=== PATIENT | male | born 1960 | race Caucasian/White ===

== ENCOUNTER 2021-07-08 13:49 | Outpatient (CLI) | payer BC | END 2021-07-08 13:50 | disposition home or self-care (01) | LOC: BICMAMMO 13:49 | PROVIDERS: ATTEND Nurse Practitioner Family | DX: N63.42 Unspecified lump in left breast, subareolar (principal) | CPT/HCPCS: 77066; G0279 ==

== ENCOUNTER 2024-04-22 15:03 | Outpatient (CLI) | payer BC | END 2024-04-22 15:04 | disposition home or self-care (01) | LOC: SCSMRI 15:03 | PROVIDERS: ATTEND Nurse Practitioner Family | DX: S49.91XD Unspecified injury of right shoulder and upper arm, subsequent encounter (principal); S43.431D Superior glenoid labrum lesion of right shoulder, subsequent encounter; M75.51 Bursitis of right shoulder ==

== ENCOUNTER 2024-06-11 09:51 | Outpatient (CLI) | payer BC ==
[2024-06-11 10:47] LABS: #Basophils 0.05 10x3/uL (0.0-0.2); %Basophils 0.7 % (0.0-1.0); %Eosinophils 1.2 % (0.0-10.0); %Lymphocytes 26.5 % (21.0-51.0); %Monocytes 7.1 % (0.0-10.0); %Neutrophils 64.1 % (42.0-75.0); Hematocrit 44.9 % (42.0-52.0); Hemoglobin 15.3 g/dL (14.0-18.0); Mean Corpuscular HGB CONC 34.1 g/dL (32.0-36.0); Mean Corpuscular Hemoglobin 31.3 pg (27.0-31.0); Mean Corpuscular Volume 91.8 fL (78.0-98.0); Mean Platelet Volume 11.2 fL (7.4-10.4); Platelet Count 230 10x3/uL (130-400); RBC Distribution Width 13.9 % (11.5-14.5); Red Blood Cell (RBC) Count 4.89 mill/uL (4.70-6.10)
[2024-06-11 11:12] LABS: Anion Gap 13 mmol/L (10-20); BUN (Urea Nitrogen) 10 mg/dL (8.4-25.7); Calc. Creatinine Clearance 0 mL/min (70-130); Calcium 9.1 mg/dL (7.8-10.44); Carbon Dioxide 26 mmol/L (23-31); Chloride 102 mmol/L (98-107); Estimated GFR 71; Glucose 90 mg/dL (80-115); Potassium 4.5 mmol/L (3.5-5.1); Sodium 136 mmol/L (136-145)
== END 2024-06-11 09:52 | disposition home or self-care (01) ==
LOC: LABBT 09:51
PROVIDERS: ATTEND Orthopaedic Surgery
DX: Z01.818 Encounter for other preprocedural examination (principal); M75.111 Incomplete rotator cuff tear or rupture of right shoulder, not specified as traumatic
CPT/HCPCS: 80048; 85025; 93005; 93010

== ENCOUNTER 2024-06-14 07:30 | Day surgery (SDC) | payer BC ==
[2024-06-11 10:05] VITALS: BMI 28.0
[2024-06-14] MEDS ORDERED: fentaNYL 50 mcg/mL 1 mL Vial ONE ×2 (08:07→09:35)
[2024-06-14] MEDS ORDERED: Midazolam HCl 2 mg/2 ml Vial ONE (08:08)
[2024-06-14] MEDS ORDERED: Ropivacaine 0.5% HCl/PF (150 MG/30 ML VIAL) ONE (08:08)
[2024-06-14] MEDS ORDERED: Ropivacaine 0.2% HCl/PF 20 ML ONE (08:08)
[2024-06-14] MEDS ORDERED: Bupivacaine 0.25% HCL 30 ML VIAL ONE (09:14)
[2024-06-14] MEDS ORDERED: EPINEPHrine 1 MG/ML VIAL ONE (09:14)
[2024-06-14] MEDS ORDERED: CEFAZOLIN 2 GM VIAL ONE (09:24)
[2024-06-14] MEDS ORDERED: PROPOFOL 20 ML ONE (09:35)
[2024-06-14] MEDS ORDERED: Rocuronium Bromide 10 MG/ML (10ML VIAL) ONE (09:36)
[2024-06-14] MEDS ORDERED: Lidocaine 1% PF 5 ML VIAL ONE (09:36)
[2024-06-14] MEDS ORDERED: SUCCINYLCHOLINE/SOD CL,ISO/PF 200 MG/10 ML SYRINGE FS ONE (09:49)
[2024-06-14] MEDS ORDERED: Dexamethasone 20 MG/5 ML VIAL ONE (09:59)
[2024-06-14] MEDS ORDERED: Ondansetron PF 4 MG/2 ML Vial ONE (09:59)
[2024-06-14] MEDS ORDERED: Zolpidem Tartrate 5 MG TAB PO PRN (10:00)
[2024-06-14] MEDS ORDERED: Ropivacaine 0.2% 550 ML 550 ML NERVE BLCK SCH (10:00)
[2024-06-14] MEDS ORDERED: Promethazine HCl 25 MG/ML VIAL IM PRN ×2 (10:00→11:04)
[2024-06-14] MEDS ORDERED: Ondansetron PF 4 MG/2 ML Vial IVP PRN (10:00)
[2024-06-14] MEDS ORDERED: PHENYLEPHRINE-NS 100 MCG/ML 10 ML SYRINGE ONE (10:26)
[2024-06-14] MEDS ORDERED: Ondansetron HCl/PF 4 MG/2 ML Vial IVP PRN (11:04)
== END 2024-06-14 12:45 | disposition home or self-care (01) ==
LOC: SDC 07:30
PROVIDERS: ATTEND Orthopaedic Surgery
PROC: 0RBJ4ZZ Excision of Right Shoulder Joint, Percutaneous Endoscopic Approach (ICD-10-PCS; principal; 2024-06-14)
PROC: 3E0T3BZ Introduction of Anesthetic Agent into Peripheral Nerves and Plexi, Percutaneous Approach (ICD-10-PCS; principal; 2024-06-14)
DX: M75.111 Incomplete rotator cuff tear or rupture of right shoulder, not specified as traumatic (principal); M75.51 Bursitis of right shoulder; E78.00 Pure hypercholesterolemia, unspecified; J45.909 Unspecified asthma, uncomplicated; K21.9 Gastro-esophageal reflux disease without esophagitis; Z87.891 Personal history of nicotine dependence; Z88.8 Allergy status to other drugs, medicaments and biological substances; Z79.2 Long term (current) use of antibiotics; Z79.51 Long term (current) use of inhaled steroids; Z79.899 Other long term (current) drug therapy
CPT/HCPCS: A4306; J0171; J0665; J1100; J2250; J2405; J2704; J2795; J3010

== ENCOUNTER 2024-12-24 13:45 | Outpatient (CLI) | payer BC | END 2024-12-24 13:46 | disposition home or self-care (01) | LOC: SCSMRI 13:45 | PROVIDERS: ATTEND Orthopaedic Surgery | DX: M47.812 Spondylosis without myelopathy or radiculopathy, cervical region (principal); M54.2 Cervicalgia; M50.30 Other cervical disc degeneration, unspecified cervical region; M48.03 Spinal stenosis, cervicothoracic region; M48.02 Spinal stenosis, cervical region; M50.21 Other cervical disc displacement, high cervical region | CPT/HCPCS: 72141 ==